=== PATIENT | male | born 1995 | race Caucasian/White ===

== ENCOUNTER 2018-08-01 10:52 | Outpatient (CLI) | payer OTHER, SELFPAY ==
--- NOTE | 2018-08-01 11:30 | DI.US_ITS ---
SYMPTOM/DIAGNOSIS: VOMITING, R11.10 ABDOMEN ULTRASOUND: The liver is normal in size and echogenicity. No focal liver lesions or biliary dilatation is seen. The gallbladder has a normal appearance, without evidence of stones or wall thickening. The kidneys show normal size and parenchymal thickness. No stones or hydronephrosis is present. The pancreas is unremarkable. The spleen is normal in size. The aorta is normal in diameter. No ascites is present. IMPRESSION: Negative abdomen ultrasound.
[2018-08-01 11:37] LABS: Abs Immature Grans 0.01 k/cumm (0.0-0.09); Absolute Basophil Count 0.02 k/cumm (0.0-0.2); Absolute Eosinophil Count 0.12 k/cumm (0.0-0.7); Absolute Lymphocyte Count 1.67 k/cumm (1.2-3.4); Absolute Neutrophil Count 2.96 k/cumm (1.2-6.7); Basophils % 0.4; Eosinophils % 2.2; HCT 48.4 % (40.0-50.0); HGB 16.9 g/dL (13.5-17.5); Immature Grans % 0.2; Mean Corp. HGB Concentration 34.9 g/dL (32.0-36.0); Mean Corpuscular Hemoglobin 30.3 pg (27.0-33.0); Mean Corpuscular Volume 86.9 fL (80-95); Mean Platelet Volume 10.2 fL (8.0-11.0); Monocytes % 11.2; Platelet Count 156 x1000/uL (130-400); RBC 5.57 m/cumm (4.50-6.00); RBC Distribution Width 11.8 % (11.8-14.1); White Blood Cell Count 5.38 k/cumm (4.4-10.8)
[2018-08-01 12:43] LABS: ALT 32 U/L (12-78); AST 14 U/L (15-37); Albumin 4.5 g/dL (3.4-5.0); Alkaline Phosphatase 65 U/L (46-116); Anion Gap 9.6 mmol/L (3-11); BUN 12 mg/dL (7-18); Bilirubin, Total 0.8 mg/dL (0.2-1.0); CO2 27.4 mmol/L (21.0-32.0); CREATININE 1.22 mg/dL (0.70-1.30); Calcium 9.9 mg/dL (8.5-10.1); Chloride 102 mmol/L (98-107); Glucose 92 mg/dL (70-100); Sodium 139 mmol/L (136-145); Total Protein 7.7 g/dL (6.4-8.2)
[2018-08-01 12:47] LABS: ESR 3 MM/HR (0-15)
[2018-08-02 11:56] LABS: IgA 171 mg/dL (85-499); Interpretation SEE COMMENTS; Tissue Transglutaminase IgA <1.2 U/mL (<4.0)
== END 2018-08-01 11:12 ==
PROVIDERS: PCP Pediatrics; Visit Provider Pediatrics
DX: R11.10 Vomiting, unspecified (principal)
CPT/HCPCS: 36415; 80053; 82784; 83516; 85652; 76700; 85025